=== PATIENT | female | born 1980 | race Two or more races ===

== ENCOUNTER 2020-12-13 17:54 | Emergency (ER) | payer OTHER, BC ==
[2020-12-13] MEDS ORDERED: ACETAMINOPHEN 1000 MG/100 ML VIAL IVPB ONE (18:16)
[2020-12-13] MEDS ORDERED: SODIUM CHLORIDE 1,000 ML IV STA (18:16)
[2020-12-13] MEDS ORDERED: ONDANSETRON 4 MG/2 ML VIAL IVPUSH ONE (18:16)
[2020-12-13] MEDS ORDERED: FAMOTIDINE 20 MG/50 ML IVPB 20 MG/50 ML MG IVPB ONE ×2 (18:16→18:20)
[2020-12-13 18:18] VITALS: BP 127/93; PULSE 80; TEMP 99.1; BMI 37.0
[2020-12-13] MEDS ORDERED: ACETAMINOPHEN INJECTION 100 ML IVPB ONE (18:20)
[2020-12-13] MEDS ORDERED: ONDANSETRON 4 MG/2 ML VIAL ONE (18:20)
[2020-12-13 18:59] LABS: HCG,QUALITATIVE URINE Negative
[2020-12-13 19:00] LABS: BASO % 1.1 % (0-2.0); EOS % 1.6 % (0-4.5); HEMATOCRIT 37.6 % (32.4-45.2); HEMOGLOBIN 12.7 GM/dl (10.7-15.3); LYMPH % 44.4 % (8-40); MCH 29.4 pg (25.7-33.7); MCHC 33.8 g/dl (32.0-36.0); MONO % 9.8 % (3.8-10.2); NEUT % 43.1 % (42.8-82.8); PLATELET COUNT 300 10^3/uL (134-434); RBC 4.32 M/mm3 (3.60-5.2); RDW 12.8 % (11.6-15.6); WHITE BLOOD COUNT 4.8 K/mm3 (4.0-10.8)
[2020-12-13 19:26] LABS: BILIRUBIN,TOTAL 0.6 mg/dl (0.2-1); CALCIUM 8.9 mg/dl (8.5-10); CREATININE 0.7 mg/dl (0.55-1.3); TOT PROT 7.6 g/dl (6.4-8.2)
[2020-12-13 23:05] LABS: CALCIUM OXALATE CRYSTALS FEW /hpf (NONE SEEN)
[2020-12-14 16:13] LABS: SARS-CoV-2 NAA Not Detected (Not Detected)
== END 2020-12-13 20:18 | disposition home or self-care (01) ==
LOC: FER 17:54
PROC: 3E0333Z Introduction of Anti-inflammatory into Peripheral Vein, Percutaneous Approach (ICD-10-PCS; principal; 2020-12-13)
PROC: 3E033GC Introduction of Other Therapeutic Substance into Peripheral Vein, Percutaneous Approach (ICD-10-PCS; 2020-12-13)
PROC: 3E033GC Introduction of Other Therapeutic Substance into Peripheral Vein, Percutaneous Approach (ICD-10-PCS; 2020-12-13)
PROC: 3E0337Z Introduction of Electrolytic and Water Balance Substance into Peripheral Vein, Percutaneous Approach (ICD-10-PCS; 2020-12-13)
DX: R10.10 Upper abdominal pain, unspecified (principal)
CPT/HCPCS: 36415; 80053; 81003; 81015; 83690; 84703; 85025; 87804; 99284-25; C9803; J0131; U0003; U0005

== ENCOUNTER 2021-03-21 12:49 | Emergency (ER) | payer OTHER, BC ==
[2021-03-21 13:18] VITALS: BP 113/76; PULSE 60; TEMP 98.2; BMI 31.4
== END 2021-03-21 13:46 | disposition home or self-care (01) ==
LOC: FER 12:49
PROC: 0HQGXZZ Repair Left Hand Skin, External Approach (ICD-10-PCS; principal; 2021-03-21)
DX: S61.213A Laceration without foreign body of left middle finger without damage to nail, initial encounter (principal); W26.0XXA Contact with knife, initial encounter; Y93.G1 Activity, food preparation and clean up
CPT/HCPCS: 99282-25

== ENCOUNTER 2021-06-17 05:40 | Emergency (ER) | payer OTHER, BC ==
[2021-06-17 05:52] VITALS: BP 112/76; PULSE 72; TEMP 98.5; BMI 31.4
[2021-06-17] MEDS ORDERED: POLYMYXIN B SULFATE/TMP 10 ML OPHTHALMIC SOLUTION OS SCH (06:00)
[2021-06-17] MEDS ORDERED: NEOMYCIN/POLYMYXN/HC OTIC SUSPENSION 10 ML BOTTLE ONE (06:05)
== END 2021-06-17 06:08 | disposition home or self-care (01) ==
LOC: FER 05:40
DX: H60.92 Unspecified otitis externa, left ear (principal)
CPT/HCPCS: 99283-25

== ENCOUNTER 2022-02-28 20:05 | Emergency (ER) | payer OTHER, BC ==
[2022-02-28 20:23] VITALS: BMI 27.4
[2022-02-28 23:15] LABS: HEMATOCRIT 36.2 % (32.4-45.2); HEMOGLOBIN 12.6 G/dL (10.7-15.3); MCH 30.3 pg (25.7-33.7); MCHC 34.9 g/dl (32.0-36.0); MEAN CELL VOLUME 87.1 fl (80-96); MEAN PLT VOLUME 8.2 fl (7.5-11.1); PLATELET COUNT 230.5 10^3/uL (134-434); RBC 4.16 10^6/uL (3.60-5.2); RDW 14.8 % (11.6-15.6); WHITE BLOOD COUNT 17.8 10^3/uL (4.0-10.8)
[2022-02-28 23:19] LABS: HCG,QUALITATIVE URINE Negative
[2022-02-28 23:23] LABS: EPITHELIAL CELLS FEW /hpf
[2022-02-28 23:27] LABS: ALBUMIN 3.8 g/dl (3.4-5.0); BILIRUBIN,TOTAL 0.6 mg/dl (0.2-1); CALCIUM 8.7 mg/dl (8.5-10); CREATININE 0.8 mg/dl (0.55-1.3)
[2022-02-28] MEDS ORDERED: ACETAMINOPHEN 1000 MG/100 ML BAG IVPB ONE (23:27)
[2022-02-28] MEDS ORDERED: ACETAMINOPHEN INJECTION 100 ML IVPB ONE (23:29)
[2022-02-28 23:36] LABS: PLATELET ESTIMATE ADEQUATE
[2022-03-01 00:40] VITALS: BP 113/76; PULSE 106; RESP 18; TEMP 100.8
[2022-03-01] MEDS ORDERED: KETOROLAC TROMETHAMINE 30 MG/1 ML VIAL IVPUSH ONE (01:04)
[2022-03-01] MEDS ORDERED: KETOROLAC TROMETHAMINE 30 MG/1 ML VIAL ONE (01:13)
== END 2022-03-01 01:59 | disposition home or self-care (01) ==
LOC: FER 20:05
PROC: 3E033GC Introduction of Other Therapeutic Substance into Peripheral Vein, Percutaneous Approach (ICD-10-PCS; principal; 2022-02-28)
DX: B34.9 Viral infection, unspecified (principal)
CPT/HCPCS: 0241U-QW; 36415; 74177-TC; 80053; 81003; 81015; 84703; 85027; 87077; 87086; 99285-25; Q9967